=== PATIENT | male | born 1940 | race African-American/Black ===

== ENCOUNTER 2018-12-30 11:22 | Inpatient (IN) | payer MEDICARE ==
[2018-12-30] MEDS ORDERED: Piperacillin/Tazobactam 4.5 GM VIAL ONE (12:22)
[2018-12-30 12:34] LABS: Hemoglobin 12.7 g/dL (14.0-18.0); Mean Corpuscular HGB CONC 30.1 g/dL (32.0-36.0); Mean Corpuscular Hemoglobin 28.3 pg (27.0-31.0); Mean Corpuscular Volume 94.1 fL (78.0-98.0); White Blood Cell (WBC) Count 5.6 thou/uL (4.8-10.8)
--- NOTE | 2018-12-30 12:39 | RAD ---
CHEST ONE VIEW: HISTORY: Cough. COMPARISON: None. FINDINGS: There are patchy air space opacities in both lower lobes. There is loss of the medial right heart abad rder and right hemidiaphragm, concerning for underlying mass or consolidation. No pneumothorax. IMPRESSION: 1. Findings suggesting congestive heart failure with pulmonary edema, small effusions, and cardiomeg rafiq. 2. Obscuration, right heart border, and medial right hemidiaphragm, suggesting mass or pneumonia in the right lower lobe. Followup after treatment recommended. POS: [facility]
[2018-12-30 12:45] LABS: #Basophils 0.1 thou/uL (0.0-0.2); #Eosinphils 0.1 thou/uL (0.0-0.7); #Lymphocytes 0.8 thou/uL (1.20-3.40); #Monocytes 0.3 thou/uL (0.11-0.59); #Neutrophils 4.3 thou/uL (1.40-6.50); %Basophils 1.5 % (0.0-1.0); %Eosinophils 1.5 % (0.0-10.0); %Lymphocytes 14.7 % (21.0-51.0); %Monocytes 5.7 % (0.0-10.0); %Neutrophils 76.5 % (42.0-75.0); Mean Platelet Volume 9.1 fL (7.4-10.4); Platelet Count 64 thou/uL (130-400); RBC Distribution Width 15.2 % (11.5-14.5)
[2018-12-30] MEDS ORDERED: Vancomycin HCl 1 GM in Premix Bag 1 BAG IVPB SCH (12:45)
[2018-12-30 12:59] LABS: ALT (SGPT) 22 U/L (8-55); AST (SGOT) 44 U/L (5-34); Alkaline Phosphatase 97 U/L (40-150); Anion Gap 14 mmol/L (10-20); BUN (Urea Nitrogen) 22 mg/dL (8.4-25.7); Bilirubin, Total 0.8 mg/dL (0.2-1.2); Calc. Creatinine Clearance 0 mL/min (70-130); Calcium 8.8 mg/dL (7.8-10.44); Carbon Dioxide 29 mmol/L (23-31); Chloride 106 mmol/L (98-107); Estimated GFR-MDRD Greater than 90; Globulin 4.1 g/dL (2.4-3.5); Glucose 66 mg/dL (83-110); Protein, Total 7.1 g/dL (5.8-8.1); Sodium 146 mmol/L (136-145)
[2018-12-30 13:11] LABS: CKMB 7.2 ng/mL (0-6.6)
[2018-12-30] MEDS ORDERED: Dextrose 50% Abboject 50 ML SYRINGE ONE (13:11)
[2018-12-30 13:48] LABS: Actual Bicarbonate (HCO3a) 30.8 mEq/L (22-28); Analyzer IN Cardio ER; Base Excess (BEa) 5.3 mEq/L (-2.0 to +3.0); CO2 Tension 49.1 mmHg (35.0-45.0); Carboxyhemoglobin (COHb) 1.1 gm% (0.0-3.0); Hemoglobin (Hb) 12.2 g/dL (14.0-18.0); O2 Tension (PaO2) 74.3 mmHg (> 70.0); Potassium - ABG Lab 2.58 mmol/L (3.70-5.30); pH, Arterial 7.42 (7.35-7.45)
[2018-12-30 13:50] LABS: ALV-art Gradient 63.965 (0-20); Puncture Site RBRACH
[2018-12-30 14:08] LABS: Bilirubin Negative (Negative); Blood, Urine Negative (Negative); Clarity CLEAR (Clear); Glucose, Urine (Dipstick) Negative (Negative); Leukocyte Negative (Negative); Nitrite Negative (Negative); Protein, Urine (Dipstick) Trace mg/dL (Neg-Trace); Specific Gravity, Urine 1.015 (1.002-1.036); Urobilinogen 0.2 mg/dL (0.2-1.0)
[2018-12-30] MEDS ORDERED: DOPamine 400 MG/D5W 250 ML 250 ML ONE (14:11)
[2018-12-30 14:57] LABS: Digoxin Less than 0.15 ng/mL (0.8-2.0)
--- NOTE | 2018-12-30 15:32 | CT ---
CT BRAIN: 12/30/2018 PROVIDED CLINICAL HISTORY: Altered mental status. COMPARISON: None. FINDINGS: The ventricular system appears normal in size and morphology. There is no evidence for intracranial hemorrhage or mass effect. There is a somewhat asymmetric low density present within the right cereb ral hemisphere, inferiorly, that may reflect age indeterminate ischemia. The extracranial soft tissu es and osseous structures demonstrate an unremarkable CT appearance, with the exception of mucosal th ickening seen involving the right maxillary sinus and changes of chronic sinusitis involving the left maxillary sinus. Nonspecific soft tissue gas is seen within the right masseter muscle. Chronic abebe rovascular ischemic changes are seen involving the cerebral white matter. IMPRESSION: 1. Asymmetric low density is present within the inferior right cerebellar hemisphere, which could re flect age indeterminate ischemia. Consider correlation with MRI. 2. Chronic maxillary sinusitis, particularly on the left. 3. Nonspecific soft tissue gas within the right masseter muscle. Consider correlation with a CT fac ial bones if there is concern for infection or trauma. POS: [facility]
--- NOTE | 2018-12-30 16:06 | RAD ---
AP CHEST: Indications: Central line placement. Comparison: Earlier today. FINDINGS/IMPRESSION: Central line has been placed via the right jugular. Tip overlies the SVC. Bilateral perihilar infiltrates and bilateral effusions again noted. Right perihilar infiltrate sligh tly more prominent on the current study. POS: [facility]
[2018-12-30] MEDS ORDERED: Potassium Chloride 40 MEQ in Premix Bag 1 BAG IVPB SCH (16:30)
[2018-12-30] MEDS ORDERED: Ondansetron PF 4 MG/2 ML Vial IVP PRN ×2 (16:36→17:19)
[2018-12-30] MEDS ORDERED: Ondansetron ODT 4 MG TAB SL PRN (16:36)
[2018-12-30] MEDS ORDERED: Potassium Chloride 40 MEQ in Sodium Chloride 0.9% 250 ML 250 ML IVPB SCH (17:00)
[2018-12-30] MEDS ORDERED: Sodium Chloride 0.9% 1,000 ML IV SCH (17:19)
[2018-12-30] MEDS ORDERED: Acetaminophen 500 MG TAB PO PRN (17:19)
[2018-12-30] MEDS ORDERED: Benzonatate 100 MG CAP PO PRN (17:19)
[2018-12-30] MEDS ORDERED: Ondansetron ODT 4 MG TAB PO PRN (17:19)
[2018-12-30] MEDS ORDERED: Diabetic Tussin 200 MG/10 ML UDCUP PO PRN (17:19)
[2018-12-30] MEDS ORDERED: CCU Electrolyte Replacement 1 EACH FS ONE (17:20)
[2018-12-30] MEDS ORDERED: Magnesium 2 GM/NS 0.9% 100 ML 2 GM in Premix Bag 1 BAG IVPB PRN (17:40)
[2018-12-30] MEDS ORDERED: Magnesium Oxide 400 MG TAB PO PRN ×2 (17:40)
[2018-12-30] MEDS ORDERED: Potassium Phosphate 9 MMOL in Sodium Chloride 0.9% 100 ML IVPB PRN (17:40)
[2018-12-30] MEDS ORDERED: Potassium Chloride 40 MEQ in Sodium Chloride 0.9% 250 ML 250 ML IVPB PRN (17:40)
[2018-12-30] MEDS ORDERED: Potassium Chloride 20 MEQ TAB PO PRN (17:40)
[2018-12-30] MEDS ORDERED: CCU ELECTROLYTE REPLACEMENT PROTOCOL FS PRN (17:40)
[2018-12-30] MEDS ORDERED: Potassium Phosphate 15 MMOL in Sodium Chloride 0.9% 250 ML 250 ML IV PRN (17:40)
[2018-12-30] MEDS ORDERED: Potassium Phosphate 12 MMOL in Sodium Chloride 0.9% 250 ML 250 ML IV PRN (17:40)
[2018-12-30] MEDS ORDERED: Piperacillin/Tazobactam 4.5 GM in Sodium Chloride 0.9% 100 ML IVPB SCH (18:00)
[2018-12-30] MEDS: Piperacillin/Tazobactam 4.5 GM in Sodium Chloride 0.9% 100 ML IVPB SCH (18:01)
--- NOTE | 2018-12-30 18:02 | CON ---
DATE OF CONSULTATION: CRITICAL CARE NOTE Total critical care time 40 minutes. REASON FOR CONSULTATION: Bradycardia. HISTORY OF PRESENT ILLNESS: Mr. West is an unfortunate 78-year-old gentleman with no significant cardiac history, who re-presented with mental status changes. The most of the history is obtained from the chart as well as discussed the case with Dr. Espitia, primary emergency room physician. He presented with altered mental status and hallucinations. No fevers, chills, or associated symptoms. The patient is currently nonverbal. He was found to be in markedly bradycardic with underlying atrial fibrillation. Heart rate was in the 20s and 30s. He was given atropine with improvement. I then recommended that he start Dobutrex for increase in heart rate. The patient did respond well to atropine. PAST MEDICAL HISTORY: Cirrhosis, previous encephalopathy, congestive heart failure of unknown type. ALLERGIES: NONE. MEDICATIONS: Include Lasix, hydrocortisone, levothyroxine, lisinopril, aspirin, metoprolol, spirolactone, potassium, thiamine. REVIEW OF SYSTEMS: Unobtainable. PHYSICAL EXAMINATION: GENERAL: Patient is a pleasant 78-year-old gentleman, who is in no acute distress. The patient appears their stated age. The patient is not nonverbal. Does not open eyes to voice. VITAL SIGNS: Blood pressure 117/68; pulse 71; temperature afebrile. NEUROLOGIC: The patient is alert and oriented x3 with no focal neurologic deficits. HEENT: Sclerae without icterus. Mouth has moist mucous membranes with normal pallor. NECK: No JVD. Carotid upstroke brisk. No bruits bilaterally. LUNGS: Clear to auscultation with unlabored respirations. BACK: No scoliosis or kyphosis. CARDIAC: Irregularly irregular. ABDOMEN: Soft, nontender, nondistended. No peritoneal signs present. No hepatosplenomegaly. No abnormal striae. EXTREMITIES: 2+ femoral and 2+ dorsalis pedis pulses. No cyanosis, clubbing, or edema. SKIN: No gross abnormalities. PERTINENT LABORATORY DATA: Hemoglobin 12.7. Sodium 146, potassium 3.0. CK-MB is 7.2, troponin 0.048. Albumin 3.0. Digoxin level less than 0.15. IMPRESSION: 1. Mental status change. 2. Bradycardia. 3. Atrial fibrillation. RECOMMENDATIONS: At this point, we will try and continue resuscitation. We will add Dobutrex for increase in the heart rate. The patient does have a narrow complex and likely to respond to Dobutrex. He will be placed on antibiotic therapy for possible infection. There is a history of cirrhosis and encephalopathy and may be related. The patient will be placed in the ICU for close observation. Job ID: [id number]
[2018-12-30 18:10] VITALS: BMI 20.8
[2018-12-30] MEDS ORDERED: Vancomycin HCl 1 GM in Sodium Chloride 0.9% 250 ML 250 ML IVPB SCH (21:00)
[2018-12-30] MEDS: Famotidine/PF 20 mg/2ml Vial SLOW IVP SCH (21:15)
[2018-12-30] MEDS: Hydrocortisone Sod Succ/PF 100 mg/2 ml Vial IVP SCH (21:16)
--- NOTE | 2018-12-30 22:29 | HP ---
PRIMARY CARE PROVIDER: Dr. Dyson. CHIEF COMPLAINT: Altered mental status. HISTORY OF PRESENT ILLNESS: This is a 78-year-old male, who presents to [facility] Emergency Department in transfer from [facility] where the patient is a current resident. The history is obtained after discussions with the emergency room attending, as well as review of the electronic medical record in the emergency room and limited discussion with the patient who is unable to provide a coherent history. The patient apparently was noted with altered mental status and visual hallucinations per [facility] staff. The patient apparently was recently admitted to [facility] for approximately a week for severe sepsis and pneumonia. The patient received IV Zosyn and vancomycin during the hospital course at [facility], transitioning to outpatient care at [facility]. The patient apparently with a significant history of chronic alcohol abuse in addition to cirrhosis and heart failure. The patient was also noted during that hospital stay from 2018 to 12/27/2018 with hypotension requiring hydrocortisone. The patient was placed on a hydrocortisone tapering dose after discharge to [facility]. In the emergency room, the patient underwent general evaluation and was noted with hypotension as well as hypothermia. The patient was meeting sepsis criteria and initiated on vancomycin and Zosyn. The patient also received atropine in addition to normal saline x1 liter. Due to the patient's persistent hypotension in the emergency room, the patient was placed on dobutamine and dopamine infusion and given potassium supplementation. The patient was also noted on telemetry monitoring with atrial fibrillation controlled ventricular response. Due to patient's presentation and criteria for severe sepsis, altered mental status, and comorbid conditions, the patient was transferred to the critical care unit for further evaluation. Attempts were made to contact family members listed on the demographics page in the medical chart; however, the numbers were not working. PAST MEDICAL HISTORY: 1. Question of hepatic cirrhosis. 2. History of alcohol abuse. 3. Chronic thrombocytopenia. 4. Cachexia. 5. Right distal forearm amputation. 6. Hypothyroidism. 7. History of hepatic encephalopathy. 8. Congestive heart failure with ejection fraction of 45%. PAST SURGICAL HISTORY: Unable to obtain due to the patient's altered mental state. CURRENT MEDICATIONS: 1. Aspirin 81 mg p.o. daily. 2. Lasix 20 mg p.o. daily. 3. Hydrocortisone tapering dose. 4. Levothyroxine, dose unknown. 5. Lisinopril 2.5 mg p.o. daily. 6. Potassium chloride 20 mEq p.o. b.i.d. 7. Metoprolol 25 mg p.o. b.i.d. 8. Thiamine one tablet p.o. daily. 9. Augmentin 875 mg p.o. b.i.d. ALLERGIES: NO KNOWN DRUG ALLERGIES. FAMILY HISTORY: Unobtainable due to the patient's altered mental status. SOCIAL HISTORY: Resident of [facility]. No tobacco use. History of alcohol abuse. No illicit drug use. REVIEW OF SYSTEMS: Unobtainable due to the patient's hepatic encephalopathy and altered mental status. PHYSICAL EXAMINATION: VITAL SIGNS: On admission, blood pressure 143/71, pulse 57, respiratory rate 14 , temperature 92 degrees Fahrenheit rectally, O2 saturation 99% on 2 L/minute by nasal cannula. GENERAL APPEARANCE: This is a 78-year-old male, cachectic, ill-appearing, lethargic, in moderate distress. HEENT: Pupils are equal, round, reactive to light and accommodation. Extraocular muscles are intact. No scleral icterus. No conjunctival injection. Nares patent. OP is clear. The patient is edentulous. No oral lesions noted. NECK: Supple. No cervical adenopathy. No thyromegaly. No carotid bruits. No JVD appreciated. Right internal jugular central venous catheter in place. CHEST: Few scattered coarse breath sounds. CARDIOVASCULAR: S1 and S2 with distant heart sounds. ABDOMEN: Rounded, firm. No fluid wave appreciated. Bowel sounds are positive in all 4 quadrants. No palpable mass. No guarding appreciated. EXTREMITIES: Warm and dry with fair turgor. Pitting edema in the proximal thighs as well as lower extremities to the ankle and dorsum of the feet bilaterally. Pulses are palpable at the dorsalis pedis and posterior tibial arteries. Dystrophic changes noted of the bilateral nails of the feet. : Galdamez catheter in place with clear urine. NEUROLOGIC: Alert and oriented x1 to person. Mumbles minimal words to direct questioning. Lethargic. Not observed ambulatory during this exam. PERTINENT LABORATORY AND X-RAY FINDINGS: Sodium 146, potassium 3.0, chloride 106, CO2 of 29, BUN 22, creatinine 0.92. Lactic acid level 1.0, calcium 8.8, magnesium 2.1. AST 44, ALT of 22, alkaline phosphatase 97. Serum ammonia level 98. Troponin I 0.048. BNP 2010. Albumin 3.0. CBC showed a white blood cell count of 5.6, hemoglobin 12.7, hematocrit 42, platelet count 64 with 77% neutrophils. ABG dated 12/30/2018 at 1345 showed a pH of 7.42, pCO2 of 49, pO2 of 74.3, bicarb 31, O2 saturation 95% on 28% FiO2. Urinalysis negative. Digoxin level less than 0.15. Portable chest x-ray dated 12/30/2018 showed question of infiltrate in the right middle lobe with pulmonary edema. CT of the brain without contrast dated 2018 showed asymmetric density in the inferior right cerebellar hemisphere. Chronic maxillary sinusitis, left greater than right. Nonspecific soft tissue gases in the right nail maker muscle. ASSESSMENT AND PLAN: 1. Severe sepsis. The patient will be admitted to the critical care unit. We will continue empiric IV antibiotic therapy with Zosyn 4.5 g IV q.6 hours with additional vancomycin 1 g IV q.12 hours. Blood and urine cultures are pending. We will continue vasopressor support with dopamine at 5 mcg. Avoid antihypertensive medications. Continue IV fluids after initial IV fluid resuscitation per sepsis protocol. 2. Acute metabolic encephalopathy. Suspect multifactorial given the patient's presentation in #1 in addition to hepatic cirrhosis and likely hyperammonemia. We will continue supportive management as outlined previously. 3. Hyperammonemia. Continue lactulose 30 g p.o. q.i.d. Repeat ammonia level in the a.m. 4. Adrenal insufficiency. Suspected due to severe hypotension in the context of chronic hydrocortisone therapy. We will continue Solu-Cortef 50 mg IV q.8 hours. Avoid antihypertensive medications. Check serum cortisol level in the a.m. 5. Hypokalemia. Continue potassium chloride supplementation. Repeat potassium level in the a.m. 6. Severe protein-calorie malnutrition. Consult Dietary Services in the a.m. Ensure High Protein t.i.d. 7. Hypothyroidism. Resume home Synthroid. Check TSH and free T4 level in the a.m. 8. Prophylaxis. SCDs while in bed. Pepcid 20 mg IV q.12 hours. 9. Code status is full. Surrogate medical decision maker not identified. Job ID: [id number] [facility]
--- NOTE | 2018-12-31 00:30 | CON ---
DATE OF CONSULTATION: 12/30/2018 SUBJECTIVE: Mr. West is a 78-year-old male who lives in a long-term. He presented with confusion. He has a history of cirrhosis and hepatic encephalopathy. He apparently was bradycardic in the emergency department, had temporary pacer pads placed on him. He was to be started on dobutamine, but this had not arrived to the bedside when the patient arrived in the ICU. He was no longer bradycardic. He did respond to atropine. PAST MEDICAL HISTORY: Remarkable for cirrhosis. History of cardiomyopathy reportedly. Emergency physician told me he just got out of the hospital and was diagnosed as having adrenal insufficiency. He apparently was on 100 mg of hydrocortisone at the long-term. He is on thyroid replacement, adjust for hypothyroidism, an DAVIDSON inhibitor, aspirin, beta diana, and Aldactone. It is unclear where the hospital hospitalization was and he does not certainly give any history that helps with that. REVIEW OF SYSTEMS: 10 point review of systems completed, not accurately obtainable. SOCIAL HISTORY: Unknown. FAMILY HISTORY: Unknown. PHYSICAL EXAMINATION: GENERAL: He is cachectic. He has an amputation of his right upper extremity. He did say when asked directly what happened to his arm, he replied myrna cedillo. OBJECTIVE: VITAL SIGNS: Heart rates in the 70s, blood pressure 125/78, respiratory rate 20. NECK: Supple. GENERAL: He is cachectic-appearing. LUNGS: Remarkable for distant breath sounds. He is mumbling and pulling at everything. HEART: Regular rhythm. ABDOMEN: Soft and nontender. EXTREMITIES: Without edema. LABORATORY DATA: White count 5.6, hemoglobin 12.7, platelets 64. Sodium 146, potassium 3, chloride 106, bicarb 29, BUN 22, creatinine 0.9. Ammonia was 98. Urinalysis was unremarkable. Blood gas; pH 7.42, pCO2 of 49, PO2 of 74. His digoxin level is less than 0.15. IMPRESSION: 1. Hepatic encephalopathy with underlying cirrhosis. 2. Thrombocytopenia, most likely secondary to hypersplenism with cirrhosis. 3. Atrial fibrillation, bradycardic earlier, is not digoxin toxic. 4. History of unknown type of cardiomyopathy. 5. History of adrenal insufficiency. 6. Probable hypothyroidism history, on replacement. 7. Agree with current management. He is totally protecting his airway. The main risk is him pulling IVs out. We will try to start him on some lactulose, although it is unclear whether or not he will swallow it. Certainly we will not keep the NG tube or Dobhoff tube in place. At this point, we will be happy to follow the other physicians caring for him. This is a 70 minute consult, with greater than 50% of time spent on unit coordinating care. Job ID: [id number] [facility]
[2018-12-31] MEDS: Piperacillin/Tazobactam 4.5 GM in Sodium Chloride 0.9% 100 ML IVPB SCH ×4 (00:32→17:02)
[2018-12-31] MEDS: Vancomycin HCl 750 MG in Sodium Chloride 0.9% 250 ML 250 ML IVPB SCH ×2 (02:52→13:00)
[2018-12-31 04:45] LABS: Band 6 % (5-11); Hemoglobin 11.6 g/dL (14.0-18.0); Lymphocytes 3 % (21-51); MDiff Complete? YES; Mean Corpuscular HGB CONC 30.6 g/dL (32.0-36.0); Mean Corpuscular Hemoglobin 28.3 pg (27.0-31.0); Mean Corpuscular Volume 92.5 fL (78.0-98.0); Mean Platelet Volume 12.4 fL (7.4-10.4); Neutrophil 90 % (42-75); Nucleated RBC 1 % (0); Platelet Count 77 thou/uL (130-400); Platelet Morphology Comment Appears Decreased; RBC Distribution Width 15.6 % (11.5-14.5); Reactive Lymphocytes 1 % (0-10); Red Blood Cell (RBC) Count 4.09 mill/uL (4.70-6.10); White Blood Cell (WBC) Count 11.1 thou/uL (4.8-10.8)
[2018-12-31 04:57] LABS: Phosphorus 2.9 mg/dL (2.3-4.7)
[2018-12-31 04:58] LABS: ALT (SGPT) 21 U/L (8-55); AST (SGOT) 35 U/L (5-34); Albumin 2.7 g/dL (3.4-4.8); Alkaline Phosphatase 93 U/L (40-150); Anion Gap 10 mmol/L (10-20); BUN (Urea Nitrogen) 19 mg/dL (8.4-25.7); Bilirubin, Total 0.8 mg/dL (0.2-1.2); Calc. Creatinine Clearance 49 mL/min (70-130); Calcium 8.3 mg/dL (7.8-10.44); Carbon Dioxide 32 mmol/L (23-31); Chloride 110 mmol/L (98-107); Estimated GFR-MDRD 81; Globulin 3.6 g/dL (2.4-3.5); Glucose 91 mg/dL (83-110); Magnesium 1.5 mg/dL (1.6-2.6); Potassium 3.4 mmol/L (3.5-5.1); Protein, Total 6.3 g/dL (5.8-8.1); Sodium 149 mmol/L (136-145)
[2018-12-31 05:17] LABS: Thyroid Stimulating Hormone 1.9912 uIU/mL (0.35-4.94)
[2018-12-31] MEDS: Hydrocortisone Sod Succ/PF 100 mg/2 ml Vial IVP SCH ×3 (05:52→21:55)
[2018-12-31] MEDS: Potassium Chloride 40 MEQ in Premix Bag 1 BAG IVPB PRN (05:52)
[2018-12-31 05:55] LABS: Free T4 (Free Thyroxine) 1.22 ng/dL (0.70-1.48)
[2018-12-31] MEDS: Famotidine/PF 20 mg/2ml Vial SLOW IVP SCH ×2 (08:52→20:48)
--- NOTE | 2018-12-31 10:13 | PDOC.PN ---
- Subjective Encounter Start Date: 12/31/18 Encounter Start Time: 10:05 Subjective: f/u for severe sepsis with shock on Vanc/Zosyn and ? source. -: More alert today per nursing and ammonia level down after Lactulose. - Objective Resuscitation Status - Order Detail: 12/30/18 17:04 Resuscitation Status Routine Resuscitation Status: FULL: Full Resuscitation MAR Reviewed: Yes Vital Signs & Weight: Vital Signs (12 hours) Temp Pulse Ox 12/31/18 08:00 94 L 12/31/18 02:00 99.2 F Weight Weight 132 lb 15.02 oz Most Recent Monitor Data Heart Rate from ECG 60 NIBP 117/60 NIBP BP-Mean 79 Respiration from ECG 24 SpO2 90 I&O: 12/30/18 12/31/18 01/01/19 06:59 06:59 06:59 Intake Total 1694 Output Total 1165 75 Balance 529 -75 Result Diagrams: 12/31/18 04:25 12/31/18 04:25 Additional Labs: Microbiology 12/30/18 13:55 Urine hoover catheter Urine Culture - Preliminary NO GROWTH AT 24 HOURS 12/30/18 12:24 Venous blood - Left Hand Blood Culture - Preliminary Specimen has been received and culture in progress. No Growth to date. 12/30/18 12:19 Venous blood - Left Arm Blood Culture - Preliminary Specimen has been received and culture in progress. No Growth to date. Laboratory Tests 12/30/18 12/30/18 12/30/18 12:13 12:13 12:24 WBC 5.6 Plt Count 64 L Sodium 146 H Potassium 3.0 L Phosphorus Magnesium Ammonia 98 H Free T4 TSH 3rd Generation Cortisol 12/31/18 12/31/18 12/31/18 04:25 04:25 04:25 WBC Plt Count Sodium Potassium Phosphorus Magnesium 1.5 L Ammonia Free T4 1.22 TSH 3rd Generation 1.9912 Cortisol 36.40 12/31/18 12/31/18 04:25 04:25 WBC Plt Count Sodium Potassium Phosphorus 2.9 Magnesium Ammonia 25 Free T4 TSH 3rd Generation Cortisol EKG Reviewed by me: Yes (Tele - SR) Phys Exam - Physical Examination cachetic, frail, responds to questions briefly HEENT: PERRLA, sclera anicteric, oral pharynx no lesions Neck: no nodes, no JVD, supple, full ROM coarse sounds bilat Respiratory: no wheezing Cardiovascular: RRR, no significant murmur, no rub, gallop Gastrointestinal: soft, non-tender, no distention, positive bowel sounds distal LE edema Musculoskeletal: pulses present, edema present RUE with distal amputation Neurological: normal sensation, moves all 4 limbs Skin: normal turgor, cap refill <2 seconds Deviation from normal: Hoover with july urine Dx/Plan (1) Severe sepsis with septic shock Code(s): A41.9 - SEPSIS, UNSPECIFIED ORGANISM; R65.21 - SEVERE SEPSIS WITH SEPTIC SHOCK Status: Acute Comment: Continue Zosyn/Vancomycin, await final blood/Ucx results, remains vasopressor dependent with Dopamine (2) Acute metabolic encephalopathy Code(s): G93.41 - METABOLIC ENCEPHALOPATHY Status: Acute Comment: Multifactorial including elevated ammonia, mild improvement, continue Lactulose and supportive mgmt (3) Hyperammonemia Code(s): E72.20 - DISORDER OF UREA CYCLE METABOLISM, UNSPECIFIED Status: Acute Comment: Improved with Lactulose, continue current dosing and monitor clinically (4) Adrenal insufficiency Code(s): E27.40 - UNSPECIFIED ADRENOCORTICAL INSUFFICIENCY Status: Acute Comment: Continue Hydrocortisone (5) Severe protein-calorie malnutrition Code(s): E43 - UNSPECIFIED SEVERE PROTEIN-CALORIE MALNUTRITION Status: Chronic Comment: Ensure High Protein, Regular diet, dietitian consult (6) Hypothyroid Code(s): E03.9 - HYPOTHYROIDISM, UNSPECIFIED Status: Chronic Comment: Resume Levothyroxine 125mcg daily (7) Hypernatremia Code(s): E87.0 - HYPEROSMOLALITY AND HYPERNATREMIA Status: Acute Comment: Start D5 1/2 NS with KCL, serial Na+ monitoring - Plan continue antibiotics, PT/OT, licensed master social worker, DVT proph w/SCDs Continue supportive mgmt -: Unable to wean off Dopamine currently -: Start Levothyroxine -: Change IVF D5 1/2NS with KCL -: Palliative care consult * AM lab: CMP, CBC, Ammonia, Mg++
[2018-12-31] MEDS: DOPamine 400 MG/D5W 250 ML 250 ML IVPB SCH (11:32)
[2018-12-31] MEDS: D5 1/2 NS w/40 mEq KCL 1,000 ML IV SCH (12:58)
--- NOTE | 2018-12-31 13:42 | CON ---
DATE OF CONSULTATION: SUBJECTIVE: Mr. West is much more alert and awake today. He is answering questions. He appeared to be encephalopathic yesterday. His heart rate continues to be in the 50s to 60s. He is on 5 mcg of dopamine. No current complaints. OBJECTIVE: VITAL SIGNS: Blood pressure 120/60, pulse 67, temperature afebrile. LUNGS: Clear to auscultation. HEART: Irregularly irregular. ABDOMEN: Soft, nontender, and nondistended. EXTREMITIES: No edema. IMPRESSION: 1. Encephalopathy. 2. Mental status change. 3. Atrial fibrillation. 4. Bradycardia. RECOMMENDATIONS: Certainly difficult situation. The plan would be to attempt to wean his dopamine. He is not felt to be an appropriate candidate for anticoagulation given his coagulopathy from his advanced cirrhosis. heart rate stays stable off anticoagulation therapy. We will continue to follow with you. Job ID: [id number]
--- NOTE | 2018-12-31 18:26 | PRG ---
DATE OF SERVICE: 12/31/2018 SUBJECTIVE: Mayco West still on chronotropic agent (dopamine). He gets bradycardic when his dopamine is turned down. OBJECTIVE: VITAL SIGNS: Heart rate is in the 50s to 70s now, blood pressure 120/74, and respiratory rate 20. GENERAL: He is more alert and cooperative today. LUNGS: Clear. HEART: Regular rhythm. ABDOMEN: Soft. EXTREMITIES: Without asymmetry. LABORATORY DATA: White count 11.1, hemoglobin 11.6, platelets 77,000. Sodium 149, potassium 3.4, chloride 110, bicarb 32, BUN 19, and creatinine 1.07. IMPRESSION: 1. Hepatic encephalopathy. He is having several bowel movements a day, so we will cut back on his lactulose. 2. Cirrhosis. 3. Bradycardia. Hopefully, he will not need new cardiac procedures. PLAN: Continue supportive care in critical care unit. Job ID: [id number]
[2019-01-01] MEDS: Piperacillin/Tazobactam 4.5 GM in Sodium Chloride 0.9% 100 ML IVPB SCH ×4 (01:31→17:29)
[2019-01-01 01:41] LABS: ALT (SGPT) 18 U/L (8-55); AST (SGOT) 32 U/L (5-34); Albumin 2.7 g/dL (3.4-4.8); Alkaline Phosphatase 96 U/L (40-150); Anion Gap 15 mmol/L (10-20); BUN (Urea Nitrogen) 22 mg/dL (8.4-25.7); Bilirubin, Total 0.6 mg/dL (0.2-1.2); Calc. Creatinine Clearance 37 mL/min (70-130); Calcium 8.4 mg/dL (7.8-10.44); Carbon Dioxide 26 mmol/L (23-31); Chloride 115 mmol/L (98-107); Estimated GFR-MDRD 59; Globulin 3.7 g/dL (2.4-3.5); Glucose 169 mg/dL (83-110); Magnesium 2.1 mg/dL (1.6-2.6); Potassium 3.5 mmol/L (3.5-5.1); Protein, Total 6.4 g/dL (5.8-8.1); Sodium 152 mmol/L (136-145)
[2019-01-01 01:42] LABS: Vancomycin, Trough 24.3 ug/mL
[2019-01-01 02:13] LABS: Band 1 % (5-11); Hemoglobin 11.4 g/dL (14.0-18.0); Lymphocytes 3 % (21-51); MDiff Complete? YES; Mean Corpuscular HGB CONC 31.4 g/dL (32.0-36.0); Mean Corpuscular Hemoglobin 28.8 pg (27.0-31.0); Mean Platelet Volume 11.4 fL (7.4-10.4); Monocytes 1 % (0-10); Neutrophil 95 % (42-75); Platelet Count 96 thou/uL (130-400); Platelet Morphology Comment Appears Decreased; RBC Distribution Width 15.3 % (11.5-14.5); Red Blood Cell (RBC) Count 3.97 mill/uL (4.70-6.10); Target Cells SLIGHT = 2-5 cells (100X) (0-1/hpf); White Blood Cell (WBC) Count 12.8 thou/uL (4.8-10.8)
[2019-01-01] MEDS: D5 1/2 NS w/40 mEq KCL 1,000 ML IV SCH (06:06)
[2019-01-01] MEDS: DOPamine 400 MG/D5W 250 ML 250 ML IVPB SCH (06:07)
[2019-01-01] MEDS: Hydrocortisone Sod Succ/PF 100 mg/2 ml Vial IVP SCH ×3 (06:08→20:51)
[2019-01-01] MEDS: Levothyroxine Sodium 125 MCG TAB PO SCH (06:09)
[2019-01-01] MEDS: Famotidine/PF 20 mg/2ml Vial SLOW IVP SCH ×2 (09:30→20:50)
[2019-01-01] MEDS ORDERED: DOPamine 400 MG/D5W 250 ML 250 ML IVPB SCH (10:09)
--- NOTE | 2019-01-01 10:49 | PDOC.PN ---
- Subjective Encounter Start Date: 01/01/19 Encounter Start Time: 10:40 Subjective: f/u for septic shock with unclear organism with negative blood/Ucx. -: Still vasopressor dependent with Dopamine. - Objective Resuscitation Status - Order Detail: 12/30/18 17:04 Resuscitation Status Routine Resuscitation Status: FULL: Full Resuscitation MAR Reviewed: Yes Vital Signs & Weight: Vital Signs (12 hours) Pulse Resp Pulse Ox 01/01/19 07:46 100 01/01/19 07:32 99 01/01/19 07:29 94 23 H 99 01/01/19 03:56 88 22 H 12/31/18 22:55 61 20 98 Weight Admit Weight 132 lb Weight 132 lb 15.02 oz Most Recent Monitor Data Heart Rate from ECG 92 NIBP 146/74 NIBP BP-Mean 98 Respiration from ECG 24 SpO2 93 I&O: 12/31/18 01/01/19 01/02/19 06:59 06:59 06:59 Intake Total 1694 2194 50 Output Total 1165 600 120 Balance 529 1594 -70 Result Diagrams: 01/01/19 01:00 01/01/19 01:00 Additional Labs: Microbiology 12/30/18 13:55 Urine hoover catheter Urine Culture - Final NO GROWTH AT 48 HOURS 12/30/18 13:55 Urine hoover catheter Urine Culture - Preliminary NO GROWTH AT 24 HOURS 12/30/18 12:24 Venous blood - Left Hand Blood Culture - Preliminary Specimen has been received and culture in progress. No Growth to date. 12/30/18 12:19 Venous blood - Left Arm Blood Culture - Preliminary Specimen has been received and culture in progress. No Growth to date. Laboratory Tests 12/30/18 12/30/18 12/30/18 12:13 12:13 12:24 WBC 5.6 Plt Count 64 L Sodium 146 H Potassium 3.0 L Creatinine 0.92 Phosphorus Magnesium Ammonia 98 H Free T4 TSH 3rd Generation Cortisol 12/31/18 12/31/18 12/31/18 04:25 04:25 04:25 WBC 11.1 H Plt Count Sodium 149 H Potassium Creatinine 1.07 Phosphorus Magnesium 1.5 L Ammonia Free T4 TSH 3rd Generation Cortisol 36.40 12/31/18 12/31/18 12/31/18 04:25 04:25 04:25 WBC Plt Count Sodium Potassium Creatinine Phosphorus 2.9 Magnesium Ammonia 25 Free T4 1.22 TSH 3rd Generation 1.9912 Cortisol 01/01/19 01:00 WBC Plt Count Sodium Potassium Creatinine Phosphorus Magnesium 2.1 Ammonia Free T4 TSH 3rd Generation Cortisol EKG Reviewed by me: Yes (Tele - SR) Phys Exam - Physical Examination alert, mumbles a few words dry oral mucosa HEENT: PERRLA Neck: no nodes, no JVD, supple, full ROM Respiratory: no wheezing, no rales, no rhonchi, clear to auscultation bilateral S1, S2 Cardiovascular: RRR, no rub, gallop Gastrointestinal: soft, non-tender, no distention, positive bowel sounds Musculoskeletal: pulses present, edema present Neurological: moves all 4 limbs Skin: normal turgor, cap refill <2 seconds Dx/Plan (1) Severe sepsis with septic shock Code(s): A41.9 - SEPSIS, UNSPECIFIED ORGANISM; R65.21 - SEVERE SEPSIS WITH SEPTIC SHOCK Status: Acute Comment: Continue Zosyn, await final blood/Ucx results, remains vasopressor dependent with Dopamine (2) Acute metabolic encephalopathy Code(s): G93.41 - METABOLIC ENCEPHALOPATHY Status: Acute Comment: Multifactorial including elevated ammonia, mild improvement, continue Lactulose and supportive mgmt, appears near baseline mental status (3) Hyperammonemia Code(s): E72.20 - DISORDER OF UREA CYCLE METABOLISM, UNSPECIFIED Status: Acute Comment: Improved with Lactulose, continue current dosing and monitor clinically (4) Adrenal insufficiency Code(s): E27.40 - UNSPECIFIED ADRENOCORTICAL INSUFFICIENCY Status: Acute Comment: Suspected but cortisol levels normal, decrease Hydrocortisone 25mg IV q8h (5) Severe protein-calorie malnutrition Code(s): E43 - UNSPECIFIED SEVERE PROTEIN-CALORIE MALNUTRITION Status: Chronic Comment: Ensure High Protein, Regular diet, dietitian consult (6) Hypothyroid Code(s): E03.9 - HYPOTHYROIDISM, UNSPECIFIED Status: Chronic Comment: Resume Levothyroxine 125mcg daily (7) Hypernatremia Code(s): E87.0 - HYPEROSMOLALITY AND HYPERNATREMIA Status: Acute Comment: Worsening, change IVF D5W @ 75ml/h, serial Na+ - Plan continue antibiotics, PT/OT, social secretary, speech therapy, out of bed/ ambulate, DVT proph w/SCDs Continue Dopamine and wean as clinically indicated, remains dependent -: Change IVF D5W -: PT for mobilization -: Decrease Hydrocortisone IV 25mg q8h -: Palliative care consult appreciated * AM lab: BMP, CBC
--- NOTE | 2019-01-01 10:59 | PRG ---
DATE OF SERVICE: 01/01/2019 SUBJECTIVE: Mr. West was not tolerant of dopamine. I decreased it to 2.5 mcg per minute. This had to be increased back to 5 mcg per minute. He has no current complaints. He is more somnolent this morning. OBJECTIVE: VITAL SIGNS: Blood pressure 130/65, pulse 82. Temperature, afebrile. LUNGS: Clear to auscultation. HEART: Irregularly irregular. ABDOMEN: Soft, nontender, and nondistended. EXTREMITIES: No edema. PERTINENT LABORATORY DATA: Hemoglobin 11.4, hematocrit 36.5. Creatinine 1.41. Ammonia less than 12. Albumin 2.7. IMPRESSION: 1. Atrial fibrillation. 2. Bradycardia. 3. Cirrhosis with encephalopathy. RECOMMENDATIONS: We will continue to use dopamine for heart rate support. We will cut dopamine in half to 2.5 mcg per minute IV. We will try and wean off dopamine. Given his outlook, we will try and refrain from pacemaker, but may need to have that discussion with he and his family. He is intolerant of dopamine. The patient is not felt to be an appropriate anticoagulation therapy candidate. Job ID: [id number]
[2019-01-01] MEDS: Dextrose 5% in Water 1,000 ML IV SCH (12:33)
--- NOTE | 2019-01-01 21:21 | PRG ---
DATE OF SERVICE: 01/01/2019 SUBJECTIVE: Mayco West is probably back to near his baseline from mental status standpoint. OBJECTIVE: VITAL SIGNS: Heart rate is in the 80s, blood pressure 166/89 this evening, respiratory rate is in the 20s. GENERAL: He is in no distress. LUNGS: Clear. HEART: Regular rhythm. ABDOMEN: Soft, nontender. LABORATORY DATA: White count 12.9, hemoglobin 11.4, platelets 96,000. Sodium 152, potassium 3.5, chloride 115, bicarb 26, BUN 22, creatinine 1.4. Intake and output positive 1594. IMPRESSION: 1. Hepatic encephalopathy, resolving. 2. Cirrhosis. 3. Acute on chronic renal dysfunction in spite of a positive fluid balance. 4. Bradycardia. PLAN: Continue supportive care in the ICU. Job ID: [id number] [facility]
[2019-01-02] MEDS: Dextrose 5% in Water 1,000 ML IV SCH ×2 (03:04→12:41)
[2019-01-02] MEDS: Piperacillin/Tazobactam 4.5 GM in Sodium Chloride 0.9% 100 ML IVPB SCH ×5 (03:04→23:08)
[2019-01-02 05:36] LABS: Band 6 % (5-11); Hemoglobin 10.1 g/dL (14.0-18.0); Lymphocytes 5 % (21-51); MDiff Complete? YES; Mean Corpuscular HGB CONC 31.2 g/dL (32.0-36.0); Mean Corpuscular Hemoglobin 28.9 pg (27.0-31.0); Mean Corpuscular Volume 92.5 fL (78.0-98.0); Mean Platelet Volume 11.3 fL (7.4-10.4); Monocytes 4 % (0-10); Neutrophil 85 % (42-75); Platelet Count 96 thou/uL (130-400); Platelet Morphology Comment Appears Decreased; RBC Distribution Width 15.8 % (11.5-14.5); Red Blood Cell (RBC) Count 3.51 mill/uL (4.70-6.10); White Blood Cell (WBC) Count 9.7 thou/uL (4.8-10.8)
[2019-01-02 05:42] LABS: Anion Gap 17 mmol/L (10-20); BUN (Urea Nitrogen) 18 mg/dL (8.4-25.7); Calc. Creatinine Clearance 41 mL/min (70-130); Calcium 8.7 mg/dL (7.8-10.44); Carbon Dioxide 25 mmol/L (23-31); Chloride 113 mmol/L (98-107); Estimated GFR-MDRD 66; Glucose 111 mg/dL (83-110); Sodium 152 mmol/L (136-145)
[2019-01-02 05:44] LABS: Potassium 2.8 mmol/L (3.5-5.1)
[2019-01-02] MEDS: Potassium Chloride 40 MEQ in Premix Bag 1 BAG IVPB PRN (06:04)
[2019-01-02] MEDS: Hydrocortisone Sod Succ/PF 100 mg/2 ml Vial IVP SCH ×3 (06:04→23:05)
[2019-01-02] MEDS: Levothyroxine Sodium 125 MCG TAB PO SCH (06:05)
[2019-01-02] MEDS: Famotidine/PF 20 mg/2ml Vial SLOW IVP SCH (09:19)
--- NOTE | 2019-01-02 10:46 | PRG ---
DATE OF SERVICE: 01/02/2019 SUBJECTIVE: Mayco West has no new complaints. OBJECTIVE: VITAL SIGNS: Heart rate is in the 70s to 100, blood pressure is 179/124 at 10 o'clock this morning, respiratory rate in the 20s. LUNGS: Clear. HEART: Regular rhythm. ABDOMEN: Soft. He is little more confused today. LABORATORY DATA: White count 9.7, hemoglobin 10.1, platelets 96,000. Sodium 152, potassium 2.8, chloride 113, bicarb 25, BUN 18, creatinine 1.28. IMPRESSION: 1. Hepatic encephalopathy. Ammonia yesterday was less than 12. We will continue with lactulose. 2. Bradycardia, which appears to have resolved for now. Cardiology is trying to refrain from placing a pacemaker. He is approaching the end of his life in my opinion. I have not seen family in the room on any of my exams and/or by his room multiple times a day. PLAN: We will continue supportive care. Job ID: [id number]
--- NOTE | 2019-01-02 13:57 | PRG ---
DATE OF SERVICE: SUBJECTIVE: Mr. West is confused. His heart rate has been stable off dopamine. This was discontinued yesterday. He also removed the central line. OBJECTIVE: VITAL SIGNS: Blood pressure 170/100, pulse 67, temperature afebrile. LUNGS: Clear to auscultation. HEART: Irregularly irregular. ABDOMEN: Soft, nontender, and nondistended. EXTREMITIES: No edema. LABORATORY DATA: Include a hemoglobin of 10.1, creatinine 1.28. IMPRESSION: 1. Atrial fibrillation. 2. Bradycardia. 3. Encephalopathy. RECOMMENDATIONS: Mr. West appears to be doing well off dopamine. We will continue current treatment. We will avoid any inotropic agents. If he continues to be stable after the next 24 hours, we will then follow from a distance. Mr. West does not appear to be a good candidate for any type of intervention. Job ID: [id number]
[2019-01-02 15:24] LABS: Potassium 3.2 mmol/L (3.5-5.1)
[2019-01-02] MEDS ORDERED: Dextrose 5% in Water 1,000 ML IV SCH (16:34)
[2019-01-02] MEDS ORDERED: Furosemide 20 MG/2 ML VIAL SLOW IVP SCH (16:45)
--- NOTE | 2019-01-02 23:01 | PDOC.PN ---
- Subjective Encounter Start Date: 01/02/19 Encounter Start Time: 16:05 Subjective: f/u for septic shock without dominant organism identified. Off Dopamine -: gtt and HR/BP stabilizing. Confused and agitated per nursing requiring -: restraints after pulling out IV. - Objective Resuscitation Status - Order Detail: 12/30/18 17:04 Resuscitation Status Routine Resuscitation Status: FULL: Full Resuscitation MAR Reviewed: Yes Vital Signs & Weight: Vital Signs (12 hours) Temp Pulse Resp Pulse Ox 01/02/19 22:17 91 20 01/02/19 19:00 97.4 F L 01/02/19 18:49 90 24 H 01/02/19 16:00 98.1 F 01/02/19 14:46 70 15 95 01/02/19 12:00 98.0 F Weight Admit Weight 132 lb Weight 132 lb 15.02 oz Most Recent Monitor Data Heart Rate from ECG 76 NIBP 151/109 NIBP BP-Mean 123 Respiration from ECG 20 SpO2 87 I&O: 01/01/19 01/02/19 01/03/19 06:59 06:59 06:59 Intake Total 2194 2316 759 Output Total 600 617 660 Balance 1594 1699 99 Result Diagrams: 01/02/19 04:24 01/02/19 14:58 Additional Labs: Microbiology 12/30/18 13:55 Urine hoover catheter Urine Culture - Final NO GROWTH AT 48 HOURS 12/30/18 13:55 Urine hoover catheter Urine Culture - Preliminary NO GROWTH AT 24 HOURS 12/30/18 12:24 Venous blood - Left Hand Blood Culture - Preliminary Specimen has been received and culture in progress. No Growth to date. 12/30/18 12:19 Venous blood - Left Arm Blood Culture - Preliminary Specimen has been received and culture in progress. No Growth to date. Laboratory Tests 12/30/18 12/30/18 12/30/18 12:13 12:13 12:24 WBC 5.6 Hgb Plt Count 64 L Sodium 146 H Potassium 3.0 L Creatinine 0.92 Phosphorus Magnesium Ammonia 98 H Free T4 TSH 3rd Generation Cortisol 12/31/18 12/31/18 12/31/18 04:25 04:25 04:25 WBC 11.1 H Hgb Plt Count Sodium 149 H Potassium Creatinine 1.07 Phosphorus Magnesium 1.5 L Ammonia Free T4 TSH 3rd Generation Cortisol 36.40 12/31/18 12/31/18 12/31/18 04:25 04:25 04:25 WBC Hgb Plt Count Sodium Potassium Creatinine Phosphorus 2.9 Magnesium Ammonia 25 Free T4 1.22 TSH 3rd Generation 1.9912 Cortisol 01/01/19 01/01/19 01/01/19 01:00 01:00 01:00 WBC 12.8 H Hgb 11.4 L Plt Count Sodium 152 H Potassium Creatinine 1.41 H Phosphorus Magnesium 2.1 Ammonia Less than 12 L Free T4 TSH 3rd Generation Cortisol 01/02/19 04:24 WBC Hgb Plt Count Sodium Potassium 2.8 L* Creatinine Phosphorus Magnesium Ammonia Free T4 TSH 3rd Generation Cortisol EKG Reviewed by me: Yes (Tele - SR) Phys Exam - Physical Examination alert, mumbling, confused HEENT: PERRLA, sclera anicteric, oral pharynx no lesions Neck: no nodes, no JVD, supple, full ROM coarse sounds bilat distant heart sounds S1, S2 Cardiovascular: RRR, no rub, gallop Gastrointestinal: soft, non-tender, no distention, positive bowel sounds L distal forearm amputation Musculoskeletal: no edema, pulses present Neurological: moves all 4 limbs Skin: normal turgor, cap refill <2 seconds Dx/Plan (1) Severe sepsis with septic shock Code(s): A41.9 - SEPSIS, UNSPECIFIED ORGANISM; R65.21 - SEVERE SEPSIS WITH SEPTIC SHOCK Status: Acute Comment: Continue Zosyn, await final blood/Ucx results, off vasopressor support (2) Acute metabolic encephalopathy Code(s): G93.41 - METABOLIC ENCEPHALOPATHY Status: Acute Comment: Multifactorial including elevated ammonia, mild improvement, continue Lactulose and supportive mgmt, appears near baseline mental status, fluctuating mental status likely near baseline (3) Hyperammonemia Code(s): E72.20 - DISORDER OF UREA CYCLE METABOLISM, UNSPECIFIED Status: Acute Comment: Improved with Lactulose, continue current dosing and monitor clinically (4) Adrenal insufficiency Code(s): E27.40 - UNSPECIFIED ADRENOCORTICAL INSUFFICIENCY Status: Acute Comment: Suspected but cortisol levels normal, decrease Hydrocortisone 10mg IV q8h (5) Severe protein-calorie malnutrition Code(s): E43 - UNSPECIFIED SEVERE PROTEIN-CALORIE MALNUTRITION Status: Chronic Comment: Ensure High Protein, Regular diet, dietitian consult (6) Hypothyroid Code(s): E03.9 - HYPOTHYROIDISM, UNSPECIFIED Status: Chronic Comment: Resume Levothyroxine 125mcg daily (7) Hypernatremia Code(s): E87.0 - HYPEROSMOLALITY AND HYPERNATREMIA Status: Acute Comment: Worsening, change IVF D5W @ 30ml/h, serial Na+ - Plan continue antibiotics, PT/OT, social services analyst, speech therapy, respiratory therapy Continue supportive mgmt -: Dopamine support d/c'd -: Continue Zosyn -: Appears clinically deteriorating despite aggressive interventions -: Palliative care, consider transition to Hospice * AM lab: BMP * Decrease Hydrocortisone 10mg IV q8h
[2019-01-02] MEDS: Famotidine 20 MG TAB PO SCH (23:02)
[2019-01-02] MEDS: Potassium Chloride 20 MEQ TAB PO SCH (23:04)
[2019-01-03] MEDS: Hydrocortisone Sod Succ/PF 100 mg/2 ml Vial IVP SCH ×3 (05:11→22:32)
[2019-01-03] MEDS: Piperacillin/Tazobactam 4.5 GM in Sodium Chloride 0.9% 100 ML IVPB SCH ×3 (05:13→17:41)
[2019-01-03] MEDS: Levothyroxine Sodium 125 MCG TAB PO SCH (05:29)
[2019-01-03 05:49] LABS: Anion Gap 21 mmol/L (10-20); BUN (Urea Nitrogen) 20 mg/dL (8.4-25.7); Calc. Creatinine Clearance 42 mL/min (70-130); Calcium 8.9 mg/dL (7.8-10.44); Carbon Dioxide 22 mmol/L (23-31); Chloride 113 mmol/L (98-107); Estimated GFR-MDRD 68; Potassium 3.4 mmol/L (3.5-5.1); Sodium 153 mmol/L (136-145)
[2019-01-03 05:51] LABS: Glucose 49 mg/dL (83-110)
[2019-01-03] MEDS ORDERED: Furosemide 20 MG/2 ML VIAL SLOW IVP SCH (06:00)
[2019-01-03] MEDS: Dextrose 50% Abboject 50 ML SYRINGE ONE ×2 (06:06→08:00)
[2019-01-03] MEDS ORDERED: Dextrose 50% Abboject 50 ML SYRINGE ONE ×2 (07:58→21:58)
[2019-01-03] MEDS: Lisinopril 2.5 MG TAB PO SCH (08:24)
[2019-01-03] MEDS: Potassium Chloride 20 MEQ TAB PO SCH ×2 (08:26→22:26)
[2019-01-03] MEDS: Famotidine 20 MG TAB PO SCH ×2 (08:27→22:35)
[2019-01-03] MEDS ORDERED: Dextrose 5% in Water 1,000 ML IV PRN (10:51)
--- NOTE | 2019-01-03 10:53 | PDOC.PN ---
- Subjective Encounter Start Date: 01/03/19 Encounter Start Time: 10:50 Subjective: f/u for sepsis previously on Dopamine support but currently off. -: More alert per nursing but confused. Hypoglycemic this am receiving -: D50. - Objective Resuscitation Status - Order Detail: 12/30/18 17:04 Resuscitation Status Routine Resuscitation Status: FULL: Full Resuscitation MAR Reviewed: Yes Vital Signs & Weight: Vital Signs (12 hours) Temp Pulse Resp BP Pulse Ox 01/03/19 10:07 73 23 H 100 01/03/19 08:24 76 177/115 H 01/03/19 08:00 96.9 F L 100 01/03/19 07:45 74 19 95 01/03/19 04:00 97.1 F L 01/03/19 02:20 95 24 H 01/03/19 00:00 97.3 F L Weight Admit Weight 132 lb Weight 132 lb 15.02 oz Most Recent Monitor Data Heart Rate from ECG 65 NIBP 175/133 NIBP BP-Mean 147 Respiration from ECG 16 SpO2 97 I&O: 01/02/19 01/03/19 01/04/19 06:59 06:59 06:59 Intake Total 2316 1161 50 Output Total 617 1795 275 Balance 5350 -744 -225 Result Diagrams: 01/02/19 04:24 01/03/19 04:11 Additional Labs: Accuchecks 01/03/19 01/03/19 08:18 07:58 POC Glucose 123 H 42 L* Microbiology 12/30/18 13:55 Urine hoover catheter Urine Culture - Final NO GROWTH AT 48 HOURS 12/30/18 13:55 Urine hoover catheter Urine Culture - Preliminary NO GROWTH AT 24 HOURS 12/30/18 12:24 Venous blood - Left Hand Blood Culture - Preliminary Specimen has been received and culture in progress. No Growth to date. 12/30/18 12:19 Venous blood - Left Arm Blood Culture - Preliminary Specimen has been received and culture in progress. No Growth to date. Laboratory Tests 12/30/18 12/30/18 12/30/18 12:13 12:13 12:24 WBC 5.6 Hgb Plt Count 64 L Sodium 146 H Potassium 3.0 L Creatinine 0.92 Phosphorus Magnesium Ammonia 98 H Free T4 TSH 3rd Generation Cortisol 12/31/18 12/31/18 12/31/18 04:25 04:25 04:25 WBC 11.1 H Hgb Plt Count Sodium 149 H Potassium Creatinine 1.07 Phosphorus Magnesium 1.5 L Ammonia Free T4 TSH 3rd Generation Cortisol 36.40 12/31/18 12/31/18 12/31/18 04:25 04:25 04:25 WBC Hgb Plt Count Sodium Potassium Creatinine Phosphorus 2.9 Magnesium Ammonia 25 Free T4 1.22 TSH 3rd Generation 1.9912 Cortisol 01/01/19 01/01/19 01/01/19 01:00 01:00 01:00 WBC 12.8 H Hgb 11.4 L Plt Count Sodium 152 H Potassium Creatinine 1.41 H Phosphorus Magnesium 2.1 Ammonia Less than 12 L Free T4 TSH 3rd Generation Cortisol 01/02/19 04:24 WBC Hgb Plt Count Sodium Potassium 2.8 L* Creatinine Phosphorus Magnesium Ammonia Free T4 TSH 3rd Generation Cortisol Radiology Reviewed by me: Yes EKG Reviewed by me: Yes (Tele - A-fib 80's) Phys Exam - Physical Examination Constitutional: NAD alert, confused HEENT: PERRLA, sclera anicteric, oral pharynx no lesions Neck: no nodes, no JVD, supple, full ROM coarse rhonchi bilat S1, S2, distant heart sounds Cardiovascular: no significant murmur, no rub, irregular Gastrointestinal: soft, non-tender, no distention, positive bowel sounds Musculoskeletal: no edema, pulses present Neurological: moves all 4 limbs A x O x 1 Skin: normal turgor, cap refill <2 seconds Deviation from normal: Hoover with clear urine Dx/Plan (1) Severe sepsis with septic shock Code(s): A41.9 - SEPSIS, UNSPECIFIED ORGANISM; R65.21 - SEVERE SEPSIS WITH SEPTIC SHOCK Status: Acute Comment: Continue Zosyn, off vasopressor support , resolving (2) Acute metabolic encephalopathy Code(s): G93.41 - METABOLIC ENCEPHALOPATHY Status: Acute Comment: Multifactorial including elevated ammonia, mild improvement, continue Lactulose and supportive mgmt, appears near baseline mental status, fluctuating mental status likely near baseline (3) Hyperammonemia Code(s): E72.20 - DISORDER OF UREA CYCLE METABOLISM, UNSPECIFIED Status: Acute Comment: Improved with Lactulose, continue current dosing and monitor clinically (4) Adrenal insufficiency Code(s): E27.40 - UNSPECIFIED ADRENOCORTICAL INSUFFICIENCY Status: Acute Comment: Suspected but cortisol levels normal, decrease Hydrocortisone 10mg IV q8h (5) Severe protein-calorie malnutrition Code(s): E43 - UNSPECIFIED SEVERE PROTEIN-CALORIE MALNUTRITION Status: Chronic Comment: Ensure High Protein, Regular diet, dietitian consult (6) Hypothyroid Code(s): E03.9 - HYPOTHYROIDISM, UNSPECIFIED Status: Chronic Comment: Resume Levothyroxine 125mcg daily (7) Hypernatremia Code(s): E87.0 - HYPEROSMOLALITY AND HYPERNATREMIA Status: Acute Comment: Worsening, change IVF D5W @ 50ml/h, serial Na+ - Plan continue antibiotics, PT/OT, social scientist, speech therapy, respiratory therapy, DVT proph w/SCDs continue D5W for free H2O replacement -: continue Zosyn -: continue Hydrocortisone IV -: Discuss goals of care with family today -: Change Lasix 20mg IV daily * AM lab: BMP
[2019-01-03] MEDS ORDERED: hydrALAZINE 25 MG TAB PO SCH (11:00)
[2019-01-03] MEDS: Dextrose 5% in Water 1,000 ML IV SCH ×2 (11:51→17:54)
--- NOTE | 2019-01-03 13:37 | PRG ---
DATE OF SERVICE: SUBJECTIVE: Mr. eWst continues to be confused. His heart rate has been stable over the last 48 hours. He has been off dopamine. OBJECTIVE: VITAL SIGNS: Heart rate 50s to 60s, blood pressure 148/98. LUNGS: Clear to auscultation. HEART: Irregularly irregular. ABDOMEN: Soft, nontender, and nondistended. EXTREMITIES: No edema. IMPRESSION: 1. Bradycardia. 2. Encephalopathy. 3. Cirrhosis. 4. Atrial fibrillation. RECOMMENDATIONS: At this point, Mr. West does not meet criteria for pacemaker implantation. He has been off dopamine over the last 2 days without significant episodes of bradycardia. I would not recommend anticoagulation therapy, given his comorbidities and risk of bleeding. At this point, we will sign off. Please consult with Dr. Woodruff if any further changes occur. Job ID: [id number]
[2019-01-03] MEDS: hydrALAZINE 25 MG TAB PO SCH ×2 (14:43→22:35)
[2019-01-03] MEDS: DOPamine 400 MG/D5W 250 ML 250 ML IVPB SCH (17:01)
--- NOTE | 2019-01-03 18:56 | PRG ---
DATE OF SERVICE: 01/03/2019 SUBJECTIVE: Mr. West has been having bradycardic events today. This afternoon, he had to be put back on dopamine. He had several very long sinus pauses. OBJECTIVE: VITAL SIGNS: His heart rate now is in the 60s, blood pressure 130/85, and respiratory rate 16. LUNGS: Clear. HEART: Regular rhythm. ABDOMEN: Soft. IMPRESSION: 1. Advanced cirrhosis. 2. Hyperchloremic acidosis, it is mild. 3. Borderline hypoglycemia today with multiple glucoses less than 60. It is very likely that he has no glycogen stores with his advanced liver disease. 4. Sick sinus syndrome. He probably does need a pacer, but his short-term prognosis is extremely poor. 5. History of reported adrenal insufficiency. He can probably be switched to prednisone 10 mg in the morning and 10 mg in the evening and do fine with that. 6. Hypothyroidism, on replacement. PLAN: Continue supportive care until Cardiology decides on whether or not pacemaker will be placed or family decides on whether or not he will become a do not resuscitate patient. I have still not seen any family here. Job ID: [id number]
[2019-01-04] MEDS: Piperacillin/Tazobactam 4.5 GM in Sodium Chloride 0.9% 100 ML IVPB SCH ×5 (00:16→23:35)
[2019-01-04] MEDS: Famotidine 20 MG TAB PO SCH ×3 (03:34→20:45)
[2019-01-04] MEDS: Potassium Chloride 20 MEQ TAB PO SCH ×3 (03:36→20:45)
[2019-01-04] MEDS: hydrALAZINE 25 MG TAB PO SCH ×5 (03:36→20:37)
[2019-01-04 05:20] LABS: Anion Gap 19 mmol/L (10-20); BUN (Urea Nitrogen) 21 mg/dL (8.4-25.7); Calc. Creatinine Clearance 40 mL/min (70-130); Calcium 8.8 mg/dL (7.8-10.44); Carbon Dioxide 26 mmol/L (23-31); Chloride 111 mmol/L (98-107); Estimated GFR-MDRD 65; Glucose 89 mg/dL (83-110); Sodium 153 mmol/L (136-145)
[2019-01-04 05:31] LABS: Potassium 2.7 mmol/L (3.5-5.1)
[2019-01-04] MEDS: Hydrocortisone Sod Succ/PF 100 mg/2 ml Vial IVP SCH ×3 (05:53→21:03)
[2019-01-04] MEDS: Dextrose 50% Abboject 50 ML SYRINGE IVP PRN ×2 (05:58→07:17)
[2019-01-04] MEDS: Levothyroxine Sodium 125 MCG TAB PO SCH (06:05)
[2019-01-04] MEDS: Dextrose 5% in Water 1,000 ML IV SCH (06:06)
[2019-01-04] MEDS: DOPamine 400 MG/D5W 250 ML 250 ML IVPB SCH (06:38)
[2019-01-04] MEDS ORDERED: Dextrose 50% Abboject 50 ML SYRINGE ONE (07:16)
[2019-01-04] MEDS ORDERED: Sterile Water 10 ML ONE (08:15)
[2019-01-04] MEDS: Dextrose 10% in Water 500 ML IV SCH ×4 (08:45→20:58)
--- NOTE | 2019-01-04 09:49 | PDOC.PN ---
- Subjective Encounter Start Date: 01/04/19 Encounter Start Time: 09:40 Subjective: f/u for sepsis with shock, hypoglycemia, bradycardia back on Dopamine -: gtt. Nsg reports persistent hypoglycemia receiving D50 and Glucagon. -: Remains confused. - Objective Resuscitation Status - Order Detail: 01/04/19 09:01 Resuscitation Status Routine Resuscitation Status: DNAR: NO Resuscitation Discussed with: BROTHER-DIANE NIA Additional comments: SPOKE WITH DIANE KRAMER VERIFIED PATIENT'S CODE STATUS WITH COMFORT CARE AND DNAR MAR Reviewed: Yes Vital Signs & Weight: Vital Signs (12 hours) Temp Pulse Resp Pulse Ox 01/04/19 06:29 73 21 H 100 01/04/19 06:00 97.2 F L 01/04/19 04:00 98.0 F 01/04/19 03:36 81 01/03/19 23:32 81 20 Weight Admit Weight 132 lb Weight 132 lb 15.02 oz Most Recent Monitor Data Heart Rate from ECG 75 NIBP 172/121 NIBP BP-Mean 138 Respiration from ECG 22 SpO2 87 I&O: 01/03/19 01/04/19 01/05/19 06:59 06:59 06:59 Intake Total 1161 2241.5 Output Total 1795 1260 Balance -634 981.5 Result Diagrams: 01/02/19 04:24 01/04/19 04:35 Additional Labs: Accuchecks 01/04/19 01/04/19 01/04/19 09:00 08:10 06:42 POC Glucose 38 L* Less than 35 L* 104 01/04/19 01/03/19 01/03/19 05:58 23:38 21:58 POC Glucose Less than 35 L* 137 H 54 L* 01/03/19 01/03/19 01/03/19 15:17 12:15 11:28 POC Glucose 77 73 59 L* Microbiology 12/30/18 13:55 Urine hoover catheter Urine Culture - Final NO GROWTH AT 48 HOURS 12/30/18 13:55 Urine hoover catheter Urine Culture - Preliminary NO GROWTH AT 24 HOURS 12/30/18 12:24 Venous blood - Left Hand Blood Culture - Preliminary Specimen has been received and culture in progress. No Growth to date. 12/30/18 12:19 Venous blood - Left Arm Blood Culture - Preliminary Specimen has been received and culture in progress. No Growth to date. Laboratory Tests 12/30/18 12/30/18 12/30/18 12:13 12:13 12:24 WBC 5.6 Hgb Plt Count 64 L Sodium 146 H Potassium 3.0 L Creatinine 0.92 Phosphorus Magnesium Ammonia 98 H Free T4 TSH 3rd Generation Cortisol 12/31/18 12/31/18 12/31/18 04:25 04:25 04:25 WBC 11.1 H Hgb Plt Count Sodium 149 H Potassium Creatinine 1.07 Phosphorus Magnesium 1.5 L Ammonia Free T4 TSH 3rd Generation Cortisol 36.40 12/31/18 12/31/18 12/31/18 04:25 04:25 04:25 WBC Hgb Plt Count Sodium Potassium Creatinine Phosphorus 2.9 Magnesium Ammonia 25 Free T4 1.22 TSH 3rd Generation 1.9912 Cortisol 01/01/19 01/01/19 01/01/19 01:00 01:00 01:00 WBC 12.8 H Hgb 11.4 L Plt Count Sodium 152 H Potassium Creatinine 1.41 H Phosphorus Magnesium 2.1 Ammonia Less than 12 L Free T4 TSH 3rd Generation Cortisol 01/02/19 01/03/19 04:24 04:11 WBC Hgb Plt Count Sodium 153 H Potassium 2.8 L* 3.4 L Creatinine Phosphorus Magnesium Ammonia Free T4 TSH 3rd Generation Cortisol EKG Reviewed by me: Yes (Tele - A-fib in 60's) Phys Exam - Physical Examination alert, mumbles, oriented to name HEENT: PERRLA, sclera anicteric, oral pharynx no lesions Neck: no nodes, no JVD, supple, full ROM coarse sounds bilat, exp wheezing, resp distress S1, S2 Cardiovascular: no significant murmur, no rub, gallop, irregular Gastrointestinal: soft, non-tender, no distention, positive bowel sounds Musculoskeletal: no edema, pulses present Neurological: moves all 4 limbs A x O x 1 Skin: normal turgor, cap refill <2 seconds Deviation from normal: Hoover with clear urine Dx/Plan (1) Severe sepsis with septic shock Code(s): A41.9 - SEPSIS, UNSPECIFIED ORGANISM; R65.21 - SEVERE SEPSIS WITH SEPTIC SHOCK Status: Acute Comment: Continue Zosyn, Dopamine restarted with persistent bradycardia, clinical decline persists despite comprehensive therapy (2) Acute metabolic encephalopathy Code(s): G93.41 - METABOLIC ENCEPHALOPATHY Status: Acute Comment: Multifactorial including elevated ammonia, mild improvement, continue Lactulose and supportive mgmt, appears near baseline mental status, fluctuating mental status likely near baseline (3) Hyperammonemia Code(s): E72.20 - DISORDER OF UREA CYCLE METABOLISM, UNSPECIFIED Status: Acute Comment: Improved with Lactulose, continue current dosing and monitor clinically (4) Adrenal insufficiency Code(s): E27.40 - UNSPECIFIED ADRENOCORTICAL INSUFFICIENCY Status: Acute Comment: Suspected but cortisol levels normal, decrease Hydrocortisone 10mg IV q8h (5) Severe protein-calorie malnutrition Code(s): E43 - UNSPECIFIED SEVERE PROTEIN-CALORIE MALNUTRITION Status: Chronic Comment: Ensure High Protein, Regular diet, dietitian consult (6) Hypothyroid Code(s): E03.9 - HYPOTHYROIDISM, UNSPECIFIED Status: Chronic Comment: Resume Levothyroxine 125mcg daily (7) Hypernatremia Code(s): E87.0 - HYPEROSMOLALITY AND HYPERNATREMIA Status: Acute Comment: Worsening, change IVF D10W @ 50ml/h, serial Na+ (8) Hypoglycemia Code(s): E16.2 - HYPOGLYCEMIA, UNSPECIFIED Status: Acute Comment: Persistent despite interventions, change IVF D10W, Glucagon, Hydrocortisone, likely an end-stage process given overall co-morbid conditions and persistent decline clinically - Plan plan discussed w/ family, continue antibiotics, director social service, respiratory therapy, DVT proph w/SCDs Discussed persistent clinical decline with family and they agree with -: palliative care and no aggressive interventions such as intubation, CPR. -: continue Zosyn -: Change IVF D10W -: Family will come to the hospital today as pt's status declining and * prognosis is guarded in the next 24h-48h, family aware of clincal decline * Lasix 20mg IV x 1 now * Continue Dopamine
[2019-01-04] MEDS: Furosemide 20 MG/2 ML VIAL SLOW IVP SCH (10:13)
[2019-01-04] MEDS: Lisinopril 2.5 MG TAB PO SCH (13:24)
--- NOTE | 2019-01-04 20:33 | PRG ---
DATE OF SERVICE: 01/04/2019 SUBJECTIVE: [place] is clinically unchanged. He is weaned off dopamine this morning. He had no prolonged bradycardic events after he is weaned off dopamine. OBJECTIVE: LUNGS: Clear. HEART: Regular rhythm. ABDOMEN: Soft. Family meeting was occurred between Dr. Alvarez and the family today. They agree to proceed forward. Do not resuscitate status. It was agreed by all that he did not benefit from any further management in the Critical Care Unit. The pacemaker would not give him meaningful prolongation of life since he has recurrent hepatic encephalopathy, so hospice is being considered. We will sign off. Job ID: [id number]
[2019-01-05] MEDS: Dextrose 10% in Water 500 ML IV SCH ×3 (02:01→12:42)
[2019-01-05] MEDS: Hydrocortisone Sod Succ/PF 100 mg/2 ml Vial IVP SCH ×2 (05:37→15:52)
[2019-01-05] MEDS: Dextrose 5% in Water 1,000 ML IV SCH (05:37)
[2019-01-05] MEDS: Levothyroxine Sodium 125 MCG TAB PO SCH (05:37)
[2019-01-05] MEDS: Piperacillin/Tazobactam 4.5 GM in Sodium Chloride 0.9% 100 ML IVPB SCH ×2 (05:38→12:21)
[2019-01-05] MEDS: Furosemide 20 MG/2 ML VIAL SLOW IVP SCH (09:01)
[2019-01-05 12:03] VITALS: TEMP 90
--- NOTE | 2019-01-05 12:03 | PDOC.PN ---
- Subjective Encounter Start Date: 01/05/19 Encounter Start Time: 11:55 Subjective: f/u for sepsis with shock, hypoglycemia, bradycardia and hypothermia. -: Continues to clinically decline per nursing. - Objective Resuscitation Status - Order Detail: 01/04/19 09:01 Resuscitation Status Routine Resuscitation Status: DNAR: NO Resuscitation Discussed with: BROTHER-DIANE KRAMER Additional comments: SPOKE WITH DIANE NIA VERIFIED PATIENT'S CODE STATUS WITH COMFORT CARE AND DNAR MAR Reviewed: Yes Vital Signs & Weight: Vital Signs (12 hours) Temp Pulse Resp BP Pulse Ox 01/05/19 08:00 66 16 128/65 99 01/05/19 06:37 97 01/05/19 06:35 51 L 20 97 01/05/19 04:48 58 L 20 151/70 H 98 01/05/19 01:09 57 L 20 100 01/05/19 00:25 97.1 F L 72 22 H 163/87 H 97 Weight Admit Weight 132 lb Weight 132 lb 15.02 oz Most Recent Monitor Data Heart Rate from ECG 57 NIBP 168/117 NIBP BP-Mean 134 Respiration from ECG 19 SpO2 86 I&O: 01/04/19 01/05/19 01/06/19 06:59 06:59 06:59 Intake Total 2241.5 1662 Output Total 1260 850 Balance 981.5 812 Result Diagrams: 01/02/19 04:24 01/04/19 04:35 Additional Labs: Accuchecks 01/05/19 01/05/19 01/04/19 05:43 00:51 16:31 POC Glucose 186 H 189 H 115 H Microbiology 12/30/18 13:55 Urine hoover catheter Urine Culture - Final NO GROWTH AT 48 HOURS 12/30/18 13:55 Urine hoover catheter Urine Culture - Preliminary NO GROWTH AT 24 HOURS 12/30/18 12:24 Venous blood - Left Hand Blood Culture - Preliminary Specimen has been received and culture in progress. No Growth to date. 12/30/18 12:19 Venous blood - Left Arm Blood Culture - Preliminary Specimen has been received and culture in progress. No Growth to date. Laboratory Tests 12/30/18 12/30/18 12/30/18 12:13 12:13 12:24 WBC 5.6 Hgb Plt Count 64 L Sodium 146 H Potassium 3.0 L Creatinine 0.92 Phosphorus Magnesium Ammonia 98 H Free T4 TSH 3rd Generation Cortisol 12/31/18 12/31/18 12/31/18 04:25 04:25 04:25 WBC 11.1 H Hgb Plt Count Sodium 149 H Potassium Creatinine 1.07 Phosphorus Magnesium 1.5 L Ammonia Free T4 TSH 3rd Generation Cortisol 36.40 12/31/18 12/31/18 12/31/18 04:25 04:25 04:25 WBC Hgb Plt Count Sodium Potassium Creatinine Phosphorus 2.9 Magnesium Ammonia 25 Free T4 1.22 TSH 3rd Generation 1.9912 Cortisol 01/01/19 01/01/19 01/01/19 01:00 01:00 01:00 WBC 12.8 H Hgb 11.4 L Plt Count Sodium 152 H Potassium Creatinine 1.41 H Phosphorus Magnesium 2.1 Ammonia Less than 12 L Free T4 TSH 3rd Generation Cortisol 01/02/19 01/03/19 04:24 04:11 WBC Hgb Plt Count Sodium 153 H Potassium 2.8 L* 3.4 L Creatinine Phosphorus Magnesium Ammonia Free T4 TSH 3rd Generation Cortisol Phys Exam - Physical Examination cachetic, somnolent HEENT: PERRLA, sclera anicteric, oral pharynx no lesions Neck: no nodes, no JVD, supple, full ROM coarse sounds bilat, exp wheezes S1, S2 Cardiovascular: RRR, no significant murmur, no rub, gallop Gastrointestinal: soft, non-tender, no distention, positive bowel sounds Musculoskeletal: no edema, pulses present Neurological: moves all 4 limbs Skin: normal turgor, cap refill <2 seconds Dx/Plan (1) Severe sepsis with septic shock Code(s): A41.9 - SEPSIS, UNSPECIFIED ORGANISM; R65.21 - SEVERE SEPSIS WITH SEPTIC SHOCK Status: Acute Comment: Continue Zosyn, clinical decline persists despite comprehensive therapy (2) Acute metabolic encephalopathy Code(s): G93.41 - METABOLIC ENCEPHALOPATHY Status: Acute Comment: Multifactorial including elevated ammonia, mild improvement, continue Lactulose and supportive mgmt, appears near baseline mental status, fluctuating mental status likely near baseline (3) Hyperammonemia Code(s): E72.20 - DISORDER OF UREA CYCLE METABOLISM, UNSPECIFIED Status: Acute Comment: Improved with Lactulose, continue current dosing and monitor clinically (4) Adrenal insufficiency Code(s): E27.40 - UNSPECIFIED ADRENOCORTICAL INSUFFICIENCY Status: Acute Comment: Suspected but cortisol levels normal, decrease Hydrocortisone 10mg IV q8h (5) Severe protein-calorie malnutrition Code(s): E43 - UNSPECIFIED SEVERE PROTEIN-CALORIE MALNUTRITION Status: Chronic Comment: Ensure High Protein, Regular diet, dietitian consult (6) Hypothyroid Code(s): E03.9 - HYPOTHYROIDISM, UNSPECIFIED Status: Chronic Comment: Resume Levothyroxine 125mcg daily (7) Hypernatremia Code(s): E87.0 - HYPEROSMOLALITY AND HYPERNATREMIA Status: Acute Comment: Worsening, change IVF D10W @ 50ml/h, serial Na+ (8) Hypoglycemia Code(s): E16.2 - HYPOGLYCEMIA, UNSPECIFIED Status: Acute Comment: Persistent despite interventions, change IVF D10W, Glucagon, Hydrocortisone, likely an end-stage process given overall co-morbid conditions and persistent decline clinically - Plan continue antibiotics, high school social studies teacher, DVT proph w/SCDs Persistent clinical decline -: Supportive mgmt -: Palliative care and likely transition to hospice -: Code Status: DNAR -: Decrease D10W to 100ml/h * continue Zosyn
[2019-01-05] MEDS: Potassium Chloride 20 MEQ TAB PO SCH ×2 (12:06→20:30)
[2019-01-05] MEDS: hydrALAZINE 25 MG TAB PO SCH ×3 (12:06→20:30)
[2019-01-05] MEDS: Lisinopril 2.5 MG TAB PO SCH (12:06)
[2019-01-05] MEDS: Famotidine 20 MG TAB PO SCH ×2 (12:06→20:30)
[2019-01-05] MEDS ORDERED: Dextrose 10% in Water 500 ML IV SCH (12:13)
[2019-01-06] MEDS: Levothyroxine Sodium 125 MCG TAB PO SCH (06:16)
[2019-01-06] MEDS: Famotidine 20 MG TAB PO SCH ×2 (10:18→21:15)
[2019-01-06] MEDS: Lisinopril 2.5 MG TAB PO SCH (10:18)
[2019-01-06] MEDS: hydrALAZINE 25 MG TAB PO SCH ×3 (10:18→21:16)
[2019-01-06] MEDS: Potassium Chloride 20 MEQ TAB PO SCH ×2 (10:19→21:16)
--- NOTE | 2019-01-06 13:03 | PDOC.PN ---
- Subjective Encounter Start Date: 01/06/19 Encounter Start Time: 12:50 Subjective: f/u sepsis with shock currently transitioning to palliative/hospice -: care. Remains lethargic per nursing with minimal po intake. - Objective Resuscitation Status - Order Detail: 01/04/19 09:01 Resuscitation Status Routine Resuscitation Status: DNAR: NO Resuscitation Discussed with: BROTHER-DIANE NIA Additional comments: SPOKE WITH DIANE KRAMER VERIFIED PATIENT'S CODE STATUS WITH COMFORT CARE AND DNAR MAR Reviewed: Yes Vital Signs & Weight: Vital Signs (12 hours) Pulse Resp BP Pulse Ox 01/06/19 10:18 73 01/06/19 07:50 73 20 88/52 L 98 01/06/19 06:35 57 L 18 91 L Weight Admit Weight 132 lb Weight 132 lb 15.02 oz Most Recent Monitor Data Heart Rate from ECG 57 NIBP 168/117 NIBP BP-Mean 134 Respiration from ECG 19 SpO2 86 I&O: 01/05/19 01/06/19 01/07/19 06:59 06:59 06:59 Intake Total 1662 800 Output Total 850 1525 Balance 812 -725 Result Diagrams: 01/02/19 04:24 01/04/19 04:35 Additional Labs: Accuchecks 01/04/19 07:17 POC Glucose 38 L* Microbiology 12/30/18 13:55 Urine hoover catheter Urine Culture - Final NO GROWTH AT 48 HOURS 12/30/18 13:55 Urine hoover catheter Urine Culture - Preliminary NO GROWTH AT 24 HOURS 12/30/18 12:24 Venous blood - Left Hand Blood Culture - Preliminary Specimen has been received and culture in progress. No Growth to date. 12/30/18 12:19 Venous blood - Left Arm Blood Culture - Preliminary Specimen has been received and culture in progress. No Growth to date. Laboratory Tests 12/30/18 12/30/18 12/30/18 12:13 12:13 12:24 WBC 5.6 Hgb Plt Count 64 L Sodium 146 H Potassium 3.0 L Creatinine 0.92 Phosphorus Magnesium Ammonia 98 H Free T4 TSH 3rd Generation Cortisol 12/31/18 12/31/18 12/31/18 04:25 04:25 04:25 WBC 11.1 H Hgb Plt Count Sodium 149 H Potassium Creatinine 1.07 Phosphorus Magnesium 1.5 L Ammonia Free T4 TSH 3rd Generation Cortisol 36.40 12/31/18 12/31/18 12/31/18 04:25 04:25 04:25 WBC Hgb Plt Count Sodium Potassium Creatinine Phosphorus 2.9 Magnesium Ammonia 25 Free T4 1.22 TSH 3rd Generation 1.9912 Cortisol 01/01/19 01/01/19 01/01/19 01:00 01:00 01:00 WBC 12.8 H Hgb 11.4 L Plt Count Sodium 152 H Potassium Creatinine 1.41 H Phosphorus Magnesium 2.1 Ammonia Less than 12 L Free T4 TSH 3rd Generation Cortisol 01/02/19 01/03/19 04:24 04:11 WBC Hgb Plt Count Sodium 153 H Potassium 2.8 L* 3.4 L Creatinine Phosphorus Magnesium Ammonia Free T4 TSH 3rd Generation Cortisol Phys Exam - Physical Examination cachetic, alert, nods, non-verbal, resp distress HEENT: oral pharynx no lesions diminished in bases with minimal airflow resp distress, accessory muscle use S1, S2 with distant heart sounds Gastrointestinal: soft, non-tender, no distention, positive bowel sounds Musculoskeletal: pulses present, edema present A x O x 1 Skin: normal turgor, cap refill <2 seconds Dx/Plan (1) Severe sepsis with septic shock Code(s): A41.9 - SEPSIS, UNSPECIFIED ORGANISM; R65.21 - SEVERE SEPSIS WITH SEPTIC SHOCK Status: Acute Comment: Continue Zosyn, clinical decline persists despite comprehensive therapy, end-stage process (2) Acute metabolic encephalopathy Code(s): G93.41 - METABOLIC ENCEPHALOPATHY Status: Acute Comment: Multifactorial including elevated ammonia, mild improvement, continue Lactulose and supportive mgmt, appears near baseline mental status, fluctuating mental status likely near baseline (3) Hyperammonemia Code(s): E72.20 - DISORDER OF UREA CYCLE METABOLISM, UNSPECIFIED Status: Acute Comment: Improved with Lactulose, continue current dosing and monitor clinically (4) Adrenal insufficiency Code(s): E27.40 - UNSPECIFIED ADRENOCORTICAL INSUFFICIENCY Status: Acute Comment: Suspected but cortisol levels normal, decrease Hydrocortisone 10mg IV q8h (5) Severe protein-calorie malnutrition Code(s): E43 - UNSPECIFIED SEVERE PROTEIN-CALORIE MALNUTRITION Status: Chronic Comment: Ensure High Protein, Regular diet, dietitian consult (6) Hypothyroid Code(s): E03.9 - HYPOTHYROIDISM, UNSPECIFIED Status: Chronic Comment: Resume Levothyroxine 125mcg daily (7) Hypernatremia Code(s): E87.0 - HYPEROSMOLALITY AND HYPERNATREMIA Status: Acute Comment: Worsening, change IVF D10W @ 50ml/h, serial Na+ (8) Hypoglycemia Code(s): E16.2 - HYPOGLYCEMIA, UNSPECIFIED Status: Acute Comment: Persistent despite interventions, change IVF D10W, Glucagon, Hydrocortisone, likely an end-stage process given overall co-morbid conditions and persistent decline clinically - Plan continue antibiotics, criminal justice social worker Continues clinical decline despite interventions -: Transition to Hospice after evaluation -: Continue supportive mgmt -: Ativan 1mg IV q6h prn -: O2 supplementation prn * End-stage process transitioning to hospice/palliative care
[2019-01-06] MEDS ORDERED: Lorazepam 2 MG/ML VIAL SLOW IVP PRN (13:04)
[2019-01-07] MEDS: Levothyroxine Sodium 125 MCG TAB PO SCH (05:41)
[2019-01-07 05:55] VITALS: BP 112/68
[2019-01-07] MEDS: Famotidine 20 MG TAB PO SCH (10:40)
[2019-01-07] MEDS: hydrALAZINE 25 MG TAB PO SCH (10:40)
[2019-01-07] MEDS: Potassium Chloride 20 MEQ TAB PO SCH (10:41)
[2019-01-07] MEDS: Lisinopril 2.5 MG TAB PO SCH (10:41)
--- NOTE | 2019-01-08 15:26 | DIS ---
DATE OF ADMISSION: 12/30/2018 DATE OF DISCHARGE: 01/07/2019 SUMMARY: DATE OF : 01/07/2019. FINAL DIAGNOSES: 1. Severe sepsis with septic shock. 2. Acute metabolic encephalopathy, multifactorial. 3. Hyperammonemia. 4. Severe protein-calorie malnutrition. 5. Adrenal insufficiency. 6. Hypothyroidism. 7. Hypernatremia. 8. Hypoglycemia, persistent. CONSULTATIONS: 1. Dr. Wells, with Pulmonology, Critical Care Service. 2. Dr. Enriquez, with Cardiology Service. PERTINENT LABORATORY AND X-RAY FINDINGS: Sodium ranged between 146-153. Potassium ranged between 2.7-3.5. Lactic acid level ranged between 1.0-3.4. Phosphorus 2.9. Serum ammonia level ranged between 12-98. Albumin ranged between 2.7-3.0. TSH 1.99, free T4 of 1.22. BNP of 2010. CBC showed a white blood cell count ranged between 5.6-12.8, hemoglobin ranged between 10.1-12.7, platelet count ranged between 64-96. Blood cultures x2 dated 12/30/2018 showed no growth at 5 days. Urine culture dated 12/30/2018 showed no growth at 48 hours. Portable chest x-ray dated 12/30/2018 showed pulmonary edema with small effusions and cardiomegaly. CT of the brain without contrast dated 12/30/2018 showed age-indeterminate ischemia. Chronic maxillary sinusitis, left greater than right. HOSPITAL COURSE: The patient was initially admitted to the Critical Care Unit after presenting with altered mental status from [facility]. The patient was initially managed for severe sepsis with septic shock and placed on IV Zosyn and vancomycin. The patient was also requiring vasopressor support with dopamine. The patient received resuscitation with IV fluids in addition to lactulose due to elevated ammonia level. The patient was slow to clinically improve with aggressive and comprehensive supportive management and critical care evaluation. The patient received oxygen support, however, remained lethargic with altered mentation and orientation to person only. The patient was noted with severe protein-calorie malnutrition, and nutritional supplementation attempts were made without success. The patient had limited oral intake, receiving mainly IV fluid supplementation. Discussions were had with the family regarding the patient's clinical status, overall comorbid conditions, severe protein calorie malnutrition, and likelihood of poor outcome due to the plethora of conditions at presentation. The patient transitioned out of the Critical Care Unit and was noted to do not attempt resuscitation status confirmed with family at the bedside. The patient continued to clinically decline with poor oral intake and worsening electrolyte status. The patient on 01/07/2019 at 6:49 a.m. at which point, family were notified of the patient's passing. Decedent affairs were notified and the patient was transferred with a home from [place], [place]. Job ID: [id number]
--- NOTE | 2019-01-11 14:05 | EKG ---
Test Reason : Blood Pressure : / mmHG Vent. Rate : 050 BPM Atrial Rate : 122 BPM P-R Int : 000 ms QRS Dur : 084 ms QT Int : 472 ms P-R-T Axes : 000 052 109 degrees QTc Int : 430 ms Atrial fibrillation with slow ventricular response Nonspecific ST and T wave abnormality Abnormal ECG Confirmed by LADONNA Wayne, SONAM ([id number]), food expeditor JOSEPH DUNAWAY ([id number]) on 01/11/2019 2:04:39 PM Referred By: Confirmed By:SONAM DOUGHERTY M.D.
--- NOTE | 2019-01-11 14:05 | EKG ---
Test Reason : REPEAT Blood Pressure : / mmHG Vent. Rate : 067 BPM Atrial Rate : 208 BPM P-R Int : 000 ms QRS Dur : 088 ms QT Int : 504 ms P-R-T Axes : 000 030 206 degrees QTc Int : 532 ms Atrial fibrillation with occasional atrial-paced complexes T wave abnormality, consider lateral ischemia Prolonged QT Abnormal ECG Confirmed by SONAM DOUGHERTY M.D. ([id number]), publications editor JOSEPH UDNAWAY ([id number]) on 01/11/2019 2:04:40 PM Referred By: Confirmed By:SONAM DOUGHERTY M.D.
--- NOTE | 2019-01-14 09:05 | PQF ---
[employer] Saw[employer] Relief Worker Crystal Reports Winform ViewerNIALUDWIG Serene RAND STEELE DO [id number] [id number] [id number] CLINICAL DOCUMENTATION CLARIFICATION FORM: POST DISCHARGE Addendum to original discharge summary date: ____ Late entry note date: __ Please exercise your independent, professional judgment in responding to the clarification form. Clinical indicators are provided on the bottom of this form for your review Please check appropriate box(s): HEART FAILURE: A. TYPE: [ ] Systolic / HFrEF [ ] Diastolic / HFpEF [ x ] Combined Systolic / Diastolic B. ACUITY [ ] Acute [ ] Acute on Chronic [ x ] Chronic [ ] Other diagnosis [ ] Unable to determine In addition, please specify: Present on Admission (POA): [ x ] Yes [ ] No [ ] Unable to determine For continuity of documentation, please document condition throughout progress notes and discharge summary. Thank You. CLINICAL INDICATORS - SIGNS / SYMPTOMS / LABS Ejection Fraction = 45 % - H&P CHF- H&P RISKS: HISTORY OF CARDIOMYOPATHY- CONSULT 12/30 DR. GARCIA SICK SINUS SYNDROME- PN 01/03 TREATMENTS: ON HOME LASIX 20 MG- H&P [employer] Relief Worker Crystal Reports Winform Viewer(This form is maintained as a part of the permanent medical record) 2014 [employer]. All Rights Reserved Kami [email or web address] [phone] [email or web address]
== END 2019-01-07 10:38 | disposition expired | DRG 871 ==
LOC: ERS 11:22 → CCU 14:26 → SURG B 01-04 14:45
PROVIDERS: ADMIT Family Medicine; ATTEND Family Medicine
PROC: 3E033XZ Introduction of Vasopressor into Peripheral Vein, Percutaneous Approach (ICD-10-PCS; principal; 2018-12-30)
PROC: 02HV33Z Insertion of Infusion Device into Superior Vena Cava, Percutaneous Approach (ICD-10-PCS; 2018-12-30)
DX: A41.9 Sepsis, unspecified organism (principal); G93.41 Metabolic encephalopathy; E43 Unspecified severe protein-calorie malnutrition; R65.21 Severe sepsis with septic shock; E27.40 Unspecified adrenocortical insufficiency; E72.20 Disorder of urea cycle metabolism, unspecified; E87.0 Hyperosmolality and hypernatremia; I42.9 Cardiomyopathy, unspecified; I50.42 Chronic combined systolic (congestive) and diastolic (congestive) heart failure; E87.2 Acidosis; Z51.5 Encounter for palliative care; F10.10 Alcohol abuse, uncomplicated; I48.91 Unspecified atrial fibrillation; R00.1 Bradycardia, unspecified; N28.9 Disorder of kidney and ureter, unspecified; D69.6 Thrombocytopenia, unspecified; E03.9 Hypothyroidism, unspecified; E87.6 Hypokalemia; Z68.20 Body mass index [BMI] 20.0-20.9, adult; E16.2 Hypoglycemia, unspecified; Z66 Do not resuscitate; K74.60 Unspecified cirrhosis of liver; K72.90 Hepatic failure, unspecified without coma; I49.5 Sick sinus syndrome; Z79.82 Long term (current) use of aspirin; Z89.211 Acquired absence of right upper limb below elbow
CPT/HCPCS: 36415; 36416; 36556; 51702; 70450; 71045; 80048; 80053; 80162; 80202; 81003; 82140; 82533; 82553; 82805; 83605; 83735; 83880; 84100; 84439; 84443; 84484; 85007; 85025; 85027; 87040; 87086; 93005; 94640; 94760; 96360; 96365; 96367; 96375; A4216; J1265; J1610; J1720; J1940; J2060; J2405; J2543; J3370; J3475; J3480; J7050; J7620; S0028